=== PATIENT | female | born 1990 | race Caucasian/White ===

== ENCOUNTER → 2020-02-26 16:11 | Outpatient (CLI) | payer OTHER, SELFPAY | PROVIDERS: Visit Provider Nurse Practitioner | DX: Z11.1 Encounter for screening for respiratory tuberculosis (principal) ==

== ENCOUNTER → 2020-03-12 13:53 | Outpatient (CLI) | payer OTHER, SELFPAY | PROVIDERS: Visit Provider Nurse Practitioner | DX: Z11.1 Encounter for screening for respiratory tuberculosis (principal) ==

== ENCOUNTER 2022-12-19 12:33 | Emergency (ER) | payer MEDICAID, SELFPAY ==
[2022-12-19 12:38] VITALS: BP 140/78; PULSE 89; RESP 18; TEMP 36.7; O2SAT 98; BMI 27.9
--- NOTE | 2022-12-19 12:47 | EXP.UTC ---
Discharge Plan Disposition Patient Disposition: Home, Self-Care Condition: Good Prescriptions Prescriptions: New erythromycin 5 mg/gram (0.5 %) ointment 0.5 inch ophthalmic (eye) BID 5 Days Qty: 3.5 1RF No Action buspirone 5 mg tablet 5 mg PO BID Qty: 60 2RF Nexplanon 68 mg implant subdermal polymyxin B sulf-trimethoprim [Polytrim] 10,000 unit- 1 mg/mL drops 1 drp ophthalmic (eye) Q3H 7 Days Qty: 10 0RF Rx Instructions: while awake; do not exceed 6 doses in 24 hours Referrals Follow up/Referrals: Vi Booth PA [Primary Care Provider] - See instructions Activity Restrictions/Add. Instructions Additional Instructions/Restrictions: changed med if no improvement return or be seen in ed follow up with eye md Clinical Impressions Clinical Impression: Acute bacterial conjunctivitis Instructions Patient Instructions: DI for Conjunctivitis Discharge ED Provider: Erin ([facility] [place] General Stated complaint: left eye redness/swelling Mode of Arrival: Ambulatory Source of Information: Patient Limitations: No Limitations Time Seen by Provider: 12/19/22 12:47 Description of Symptoms (Recalled from Triage Doc. by RN): pt c/o L pink eye x4 days. pt is currently on eye drops for conjunctivitis. HEENT Symptoms (Recalled from RN notes): Yes Resp Symptoms (Recalled from RN notes): No Skin Symptoms (Recalled from RN notes): No MS Symptoms (Recalled from RN notes): No Functional Status (Recalled from RN notes): wnl History of Present Illness Provider Complaint: 32 yr old female presents for redness and drainage in left eye. was diagnosed with conjunctivitis and given drops but it is worsen instead of improving Related Data Home Medications Medication Instructions Recorded Confirmed etonogestrel 68 mg subdermal subdermal 10/12/22 12/15/22 implant (Nexplanon) Previous Rx's Medication Instructions Recorded buspirone 5 mg tablet 5 mg PO BID #60 tabs 09/08/22 polymyxin B sulfate 10,000 1 drp ophthalmic (eye) Q3H 7 days 12/15/22 unit-trimethoprim 1 mg/mL eye #10 mL drops (Polytrim) erythromycin 5 mg/gram (0.5 %) eye 0.5 inch ophthalmic (eye) BID 5 12/19/22 ointment days #3.5 grams Allergies Allergy/AdvReac Type Severity Reaction Status Date / Time penicillin G [PENICILLIN G] Allergy Unknown Verified 12/19/22 12:44 diphenhydramine AdvReac Severe Verified 12/19/22 12:44 [From Benadryl] Worker's Comp Is this a Worker's Comp case?: No [facility] Disclaimer: The information contained in this section may have been updated after the patient was seen, as this information can be updated by other users. Medical History , [employer]) LGSIL on Pap smear of cervix Pain of both breasts PTSD (post-traumatic stress disorder) Surgical History , [employer]) History of cholecystectomy Family History , [employer]) No significant family history Social History , [employer]) Smoking Status: Current every day smoker alcohol intake: never substance use type: denies use current occupational status: employed Travel in the last 8 weeks: None ROS Obtained: Yes All systems reviewed & no additional complaints except as documented Constitutional Constitutional: Reports system reviewed and no additional complaints, except as documented and Reports as per HPI Eyes Eyes: Reports system reviewed and no additional complaints, except as documented, Reports as per HPI, Reports eye discharge and Reports irritation ENT Ears, Nose, Mouth, and Throat: Reports system reviewed and no additional complaints, except as documented Cardiovascular Cardiovascular: Reports system reviewed and no additional complaints, except as documented Respiratory Respiratory: Reports system revi
[2022-12-19 12:57] VITALS: BP 140/78; PULSE 89; RESP 18; TEMP 36.7
== END 2022-12-19 12:58 | disposition home or self-care (01) ==
PROVIDERS: Emergency Provider Nurse Practitioner Family; PCP Physician Assistant
DX: H10.33 Unspecified acute conjunctivitis, bilateral (principal); F17.210 Nicotine dependence, cigarettes, uncomplicated
CPT/HCPCS: 99212; 99214; G0463